=== PATIENT | female | born 1990 | race Caucasian/White ===

== ENCOUNTER → 2017-09-17 | Outpatient (CLI) | payer BC ==
--- NOTE | 2017-09-17 17:39 | Diagnostic Imaging Report ---
EXAMINATION: Supine abdomen at 4:17 p.m. INDICATION: Right flank pain. COMPARISON: There are no prior studies available for comparison. FINDINGS: There is some gas in both the large and small bowel in a nonspecific fashion. There is no evidence for bowel obstruction. There is a considerable amount of fecal material in the ascending and transverse colon and to a lesser degree the descending and rectosigmoid colon. There is no mass, organomegaly, or pathological calcification evident. The osseous structures are intact. IMPRESSION: 1 The bowel gas pattern is nonspecific. There is no acute abnormality identified. 2. There is a considerable amount of fecal material in the ascending and transverse colon. Dictated by: Dictated on workstation # [id number]
== END ==
LOC: RAD 15:38
PROVIDERS: ATTEND Nurse Practitioner Family
DX: R10.9 Unspecified abdominal pain (principal)
CPT/HCPCS: 74018

== ENCOUNTER → 2018-04-11 | Outpatient (CLI) | payer BC | LOC: CARD 08:23 | PROVIDERS: ATTEND Nurse Practitioner Family | DX: R00.2 Palpitations (principal) | CPT/HCPCS: 93225; 93226 ==

== ENCOUNTER → 2018-05-31 | Outpatient (CLI) | payer BC ==
--- NOTE | 2018-05-31 14:14 | Diagnostic Imaging Report ---
PROCEDURE: US Non-ob pelvis comp/trans. TECHNIQUE: Multiple realtime grayscale images were obtained of the pelvis in various projections endovaginally. Transabdominal imaging was also performed. INDICATION: Pelvic pain. FINDINGS: The uterus measures 6.9 x 4.4 x 3.8 cm. Endometrium is 7 mm in thickness. No myometrial mass is identified. The right ovary measures 4.4 x 3.6 x 2.4 cm. There appears to be a hemorrhagic cyst involving the right ovary approximately 3.0 x 2.3 x 2.8 cm. Left ovary was not visualized. There is no free fluid. IMPRESSION: Probable 3 cm right ovarian hemorrhagic cyst. Followup ultrasound in 6-8 weeks could be performed to confirm clearing. Dictated by: Dictated on workstation # [id number]
== END ==
LOC: RAD 09:46
PROVIDERS: ATTEND Nurse Practitioner Family
DX: R10.2 Pelvic and perineal pain (principal)
CPT/HCPCS: 76830; 76856

== ENCOUNTER → 2018-07-13 | Outpatient (CLI) | payer BC ==
--- NOTE | 2018-07-13 11:00 | Diagnostic Imaging Report ---
PROCEDURE: US Non-ob pelvis comp/trans. TECHNIQUE: Multiple realtime grayscale images were obtained of the pelvis in various projections endovaginally. Transabdominal imaging was also performed. INDICATION: Followup hemorrhagic right ovarian cyst. COMPARISON: Correlation is made with prior pelvic ultrasound from 05/31/2018. FINDINGS: Uterus measures 6.3 x 4.4 x 3.1 cm. Endometrium is 7 mm in thickness. No myometrial mass is seen. The right ovary measures 2.9 x 3.6 x 2.4 cm and the left ovary measures 2.9 x 3.7 x 2.8 cm. Left ovary does contain approximately 2.0 x 1.7 cm cyst. There are multiple small follicles in both ovaries as well. Previously noted hemorrhagic cyst involving the right ovary is no longer visualized. There is blood flow to both ovaries. No free fluid is seen. IMPRESSION: 1. Previously noted 3 cm hemorrhagic cyst involving the right ovary is no longer present. There is a simple appearing 2 cm cyst involving the left ovary on today's study. The study is otherwise unremarkable. Dictated by: Dictated on workstation # [id number]
== END ==
LOC: RAD 10:03
PROVIDERS: ATTEND Nurse Practitioner Family
DX: N83.201 Unspecified ovarian cyst, right side (principal)
CPT/HCPCS: 76830; 76856

== ENCOUNTER → 2018-12-02 | Outpatient (CLI) | payer BC ==
--- NOTE | 2018-12-02 12:53 | Diagnostic Imaging Report ---
INDICATION: Persistent low back pain. TIME OF EXAM: 12:19 p.m. FINDINGS: Three views of the lumbar spine were obtained. There is normal lordotic curvature. There is some slight scoliotic curvature to the lumbar spine showing slight right convexity lower lumbar scoliotic curvature. Vertebral body heights and disc spaces are well-maintained. No fracture or subluxation is seen. IMPRESSION: Scoliosis. No acute abnormality is seen. Dictated by: Dictated on workstation # [id number]
--- NOTE | 2018-12-02 12:58 | Diagnostic Imaging Report ---
INDICATION: Persistent neck pain. TIME OF EXAM: 12:16 PM FINDINGS: Curvature and alignment of the cervical spine is normal. Vertebral body heights and disc spaces are well-maintained. Prevertebral tissues are normal. The odontoid is intact. No fractures are seen. IMPRESSION: No acute bony abnormality is detected. Dictated by: Dictated on workstation # [id number]
== END ==
LOC: RAD 11:57
PROVIDERS: ATTEND Nurse Practitioner Family
DX: M41.86 Other forms of scoliosis, lumbar region (principal); M54.2 Cervicalgia
CPT/HCPCS: 72040; 72100

== ENCOUNTER 2020-09-11 12:12 | Outpatient (CLI) | payer BC ==
[2020-09-11 12:57] VITALS: BP 122/72
[2020-09-11 13:03] LABS: BILIRUBIN,URINE NEGATIVE (NEGATIVE); CLARITY,URINE CLEAR; COLOR,URINE YELLOW; GLUCOSE, URINE (UA) NEGATIVE (NEGATIVE); KETONES,URINE NEGATIVE (NEGATIVE); LEUKOCYTE ESTERASE ,URINE TRACE (NEGATIVE); NITRITE,URINE NEGATIVE (NEGATIVE); PROTEIN,URINE NEGATIVE (NEGATIVE)
[2020-09-11 13:04] LABS: BACTERIA,URINE TRACE /HPF; SQUAMOUS EPITHELIAL CELL,UR RARE /HPF; WBC,URINE RARE /HPF
[2020-09-11] MEDS ORDERED: ACETAMINOPHEN 500 MG TAB (TYLENOL) PO ONE (13:30)
[2020-09-11 13:50] LABS: BASOPHILS # (AUTO) 0.1 10^3/uL (0.0-0.1); BASOPHILS % (AUTO) 0 % (0-10); EOSINOPHILS # (AUTO) 0.1 10^3/uL (0.0-0.3); EOSINOPHILS % (AUTO) 0 % (0-10); HEMATOCRIT 35 % (35-52); HEMOGLOBIN 11.4 g/dL (11.5-16.0); LYMPHOCYTES # (AUTO) 1.7 10^3/uL (1.0-4.0); LYMPHOCYTES % (AUTO) 15 % (12-44); MEAN CORPUSCULAR HEMOGLOBIN 28 pg (25-34); MEAN CORPUSCULAR HGB CONC 32 g/dL (32-36); MEAN CORPUSCULAR VOLUME 87 fL (80-99); MEAN PLATELET VOLUME 9.8 fL (9.0-12.2); MONOCYTES # (AUTO) 0.5 10^3/uL (0.0-1.0); MONOCYTES % (AUTO) 4 % (0-12); NEUTROPHILS # (AUTO) 9.5 10^3/uL (1.8-7.8); NEUTROPHILS % (AUTO) 80 % (42-75); PLATELET COUNT 296 10^3/uL (130-400); WHITE BLOOD COUNT 11.9 10^3/uL (4.3-11.0)
[2020-09-11 14:08] LABS: ALANINE AMINOTRANSFERASE 19 U/L (0-55); ALBUMIN 3.1 GM/DL (3.2-4.5); ALKALINE PHOSPHATASE 83 U/L (40-136); BILIRUBIN,TOTAL 0.2 MG/DL (0.1-1.0); BUN/CREATININE RATIO 9; CALCIUM 8.7 MG/DL (8.5-10.1); CARBON DIOXIDE 19 MMOL/L (21-32); CHLORIDE 108 MMOL/L (98-107); CREATININE SERUM 0.64 MG/DL (0.60-1.30); GFR ESTIMATED > 60; GLUCOSE 103 MG/DL (70-105); POTASSIUM 3.5 MMOL/L (3.6-5.0); SODIUM 138 MMOL/L (135-145); TOTAL PROTEIN 5.9 GM/DL (6.4-8.2)
--- NOTE | 2020-09-12 07:52 | Physician Query-Final Dx ---
Clinic Account Progress/Dx Physician Query: Please give diagnosis Please include # weeks gestation Date of Service Sep 11, 2020 at 12:12 ZAHIDA KANG Sep 12, 2020 07:52
== END 2020-09-11 16:15 | disposition home or self-care (01) ==
LOC: WSo 12:12 → LDRP 12:13 → WSo 16:15
PROVIDERS: ATTEND Family Medicine
DX: O26.899 Other specified pregnancy related conditions, unspecified trimester (principal); Z3A.00 Weeks of gestation of pregnancy not specified
CPT/HCPCS: 80053; 81000; 85025; 87088; G0463; 36415; 99213